=== PATIENT | male | born 1995 | race Caucasian/White ===

== ENCOUNTER 2024-06-14 17:18 | Emergency (ER) | payer OTHER, SELFPAY ==
[2024-06-14 17:34] VITALS: BP 149/98
--- NOTE | 2024-06-14 19:16 | ED.GENMED ---
History of Present Illness
General
Chief Complaint: Dental Problem
Source: patient
Exam Limitations: none
Time Seen by Provider: 06/14/24 18:25
Nursing documentation reviewed up to this point in time: agreed with
History of Present Illness
History of Present Illness:
28-year-old male with an impacted left lower or wisdom tooth, saw his dentist 1 month ago and finished a 10-day regimen of clindamycin. 2 days ago the tooth became extremely painful and was worse today so he saw his dentist again and was given a
prescription for Augmentin 875 mg twice daily which she has not filled yet. He states his dentist told him to come to the emergency room for IV antibiotics. Patient denies fever or chills. Denies nausea or vomiting. He is losing sleep due to the
pain
He does have an appointment on Monday (3 days) for consult to have his tooth extracted.
Past History
Past History
ED Past Medical History: None
ED Past Surgical History: Appendectomy
Social History
Tobacco: Non-smoker
Personal: Single
Living: with family
Employment: Employed
Review of Systems
Review of Systems
Allergies reviewed?: Yes
All Other Systems: ROS reviewed and negative except as documented in HPI and ROS
Constitutional: Denies fever or chills
EENT: Reports other (Left lower tooth pain)
ABD/GI: Denies nausea
Musculoskeletal: Denies neck pain
Skin: Reports no symptoms
Neurological: Denies headache
Phy Exam
Physical Exam
Physical Exam:
GENERAL: No acute distress. A&Ox3.
CONSTITUTIONAL: Afebrile.
EYES: clear, conjunctivae normal
Neck: Supple, no lymphadenopathy
ENMT: moist mucus membranes, Pharynx nl, no trismus, opens mouth fully. Obviously impacted backmost left lower wisdom tooth. Mild surrounding swelling, no visible or palpable abscess, no drainage. TMs normal.
RESPIRATORY: Regular respirations, nonlabored, lungs clear.
CARDIOVASCULAR: Regular rate and rhythm, no murmurs, no rubs.
GI: Soft, nontender
MUSCULOSKELETAL: Moves with ease. Well perfused.
SKIN: Warm, dry, pink
PSYCH: Normal mood and affect. Well kept, interactive and appropriate
NEUROLOGIC: Awake, alert and oriented. No focal neurological deficits
Course
Vital Signs
Initial and Last Documented VS:
Initial Vital Signs
Temp Pulse Resp BP Pulse Ox
97.6 F 87 18 149/98 98
06/14/24 17:34 06/14/24 17:34 06/14/24 17:34 06/14/24 17:34 06/14/24 17:34
Last Documented Vital Signs
Temp Pulse Resp BP Pulse Ox
97.6 F 67 20 149/100 98
06/14/24 17:34 06/14/24 19:26 06/14/24 19:26 06/14/24 19:26 06/14/24 17:34
MDM/Problems Addressed
MDM/Problems Addressed:
28-year-old male with an impacted left lower or wisdom tooth, saw his dentist 1 month ago and finished a 10-day regimen of clindamycin. 2 days ago the tooth became extremely painful and was worse today so he saw his dentist again and was given a
prescription for Augmentin 875 mg twice daily which she has not filled yet. He states his dentist told him to come to the emergency room for IV antibiotics. Patient denies fever or chills. Denies nausea or vomiting. He is losing sleep due to the
pain
He does have an appointment on Monday (3 days) for consult to have his tooth extracted.
No abscess
No fever
No significant swelling
Obviously impacted left back most molar which is growing in sideways into the tooth in front of it
Rx for Tylenol with codeine sent to patient's pharmacy
He has rx for Augmentin he will fill
Treatment is tooth extraction.
*Critical Care Note
Total Time (30-74mins, 75-104mins- exclusive of procedures): Not Applicable
ED Attending Note
-
Portions of this chart may have been created with voice recognition software.� Occasional wrong word or��sound alike� substitutions may have occurred due to the inherent limitations of voice recognition software.
Discharge Plan
Departure
Patient Disposition: Home (Routine Discharge)
Date of Disposition: 06/14/24
Time of Disposition: 19:12
Patient with high blood pressure during this ER visit?: Yes
Condition: Good
Discharge Problem:
Pain, dental
Instructions: Dental Pain (DC)
Prescriptions:
New
acetaminophen-codeine 300-30 mg tablet
1 tab PO Q6H PRN (Reason: Pain) Qty: 14 0RF
Referrals:
Your, Dentist [Other] - Call in 1-3 days for appt
NONE,* [Family Provider] -
Activity Restrictions/Additional Instructions:
As we discussed take the Augmentin as prescribed
I sent a prescription to your pharmacy for Tylenol with Codeine
You have no abscess to drain at this time
If you develop worse swelling, fever, vomiting, inability to open your mouth due to pain, seek medical care immediately
The treatment for your problem is to have the tooth pulled.
Interventions
Interventions:
*Risk Screen - Suicide Last Done: 06/14/24 19:25
*General Assessment Last Done: 06/14/24 19:25
*Neglect/Abuse Screening Last Done: 06/14/24 19:25
*Nursing Disposition Last Done: 06/14/24 19:26
Discharge Date and Time
Discharge Date/Time: 06/14/24 19:27
Print Language: [place]
[2024-06-14 19:26] VITALS: BP 149/100
== END 2024-06-14 19:27 | disposition home or self-care (01) ==
LOC: EMR 17:18
PROVIDERS: EMERGENCY PHYSICIAN Emergency Medicine
DX: K08.89 Other specified disorders of teeth and supporting structures (principal); M26.30 Unspecified anomaly of tooth position of fully erupted tooth or teeth; R03.0 Elevated blood-pressure reading, without diagnosis of hypertension
CPT/HCPCS: 99283